=== PATIENT | male | born 1995 | race Caucasian/White ===

== ENCOUNTER 2021-01-24 01:36 | Emergency (ER) | payer OTHER, SELFPAY ==
[2021-01-24 01:36] VITALS: BP 154/95; PULSE 82; RESP 16; TEMP 36.6; O2SAT 99; BMI 24.4
[2021-01-24 01:39] VITALS: O2SAT 99
--- NOTE | 2021-01-24 01:54 | EX.ED.DYSGE1 ---
HPI History of Present Illness Chief Complaint: Shortness of Breath Informant: patient Onset/Context/Timing Onset: Today and Yesterday Context: Gradual Onset Current Severity: Mild Maximum Severity: Moderate Narrative Narrative: Patient presents secondary to shortness of breath. He states he had a cough for some time and assumed it was from his smoking. Over the last day he has had increasing shortness of breath. He states he laid down to take a nap this afternoon before work and felt like he was wheezing. He states that this time it feels like he is trying to breathe through a straw. He denies chest pain. No fever or chills. His cough is productive of yellow sputum. PFSH PFSH no medical history Home Medications NK 01/24/21 [History Last Taken Unknown] Allergy/AdvReac Type Severity Reaction Status Date / Time No Known Allergies Allergy Verified 01/24/21 01:40 Social History Smoking Status: Current every day smoker ROS ROS ED Constitutional Constitutional ED: Denies chills or fever(s) Eyes Eyes: Denies change in vision ENT ENT ED: Denies sore throat Cardiovascular Cardiovascular: Denies chest pain Respiratory/Chest Respiratory/Chest: Reports cough, dyspnea and sputum Gastrointestinal Gastrointestinal: Denies abdominal pain, diarrhea, nausea or vomiting Genitourinary Genitourinary ED: Denies dysuria Musculoskeletal Musculoskeletal: Denies back pain Integumentary Denies rash Neurologic Neurologic: Denies headache(s) or weakness Psychiatric Psychiatric: Denies anxiety or depression Endocrine Endocrinology: Denies polydipsia or polyuria Allergic/Immunologic Allergic/Immunologic ED: Denies urticaria EXAM Physical Exam Const Vital Signs: 01/24/21 01:36 01/24/21 01:39 01/24/21 02:32 Temperature 98 F Temperature Source Oral Pulse Rate 82 74 Respiratory Rate 16 Respiratory Effort Normal Non-Labored Short of Breath Respiratory Depth Normal Respiratory Pattern Normal Blood Pressure 154/95 H Blood Pressure Mean 114 Pulse Ox 99 Oxygen Delivery Method Room Air Room Air Positive well nourished and well developed General Appearance ED: well developed HEENT Reports normocephalic and head/scalp atraumatic Eyes PERRL and EOMs intact bilaterally Neck supple Chest Wall inspection of chest normal and palpation of chest normal Resp normal respiratory effort and clear to auscultation bilaterally Cardio regular rate and regular rhythm GI normal to inspection, nondistended, normoactive bowel sounds Palpation: soft Back/Spine no CVA tenderness Extremity normal to inspection Neuro oriented x3 and no sensory deficits noted Sensorium / Orientation: alert Motor Exam: strength 5/5 throughout Psych mental status grossly normal Skin no rashes or lesions noted MDM MDM MDM Narrative Medical decision making narrative: Patient was given albuterol MDI. Rapid Covid test was obtained and negative. Portable chest x-ray is ordered. Radiography Chest X-Ray - ED: 1 View, Read by ED Physician, Normal, Heart, Lungs and Mediastinum Diagnostic Testing: Radiology Impression Chest X-Ray 01/24/21 02:24 IMPRESSION: Normal x-ray examination of the chest. Electronically Signed: Maximino Cross MD at 2:34 EDT Tel , Service support , Treatment and Re-Evaluation Comments:: On repeat evaluation patient resting comfortably. He does feel improved after using the albuterol. He will use this at home. I believe he has a viral URI that is causing bronchospasm. I do not see cause for antibiotics at this time. Discharge Plan Triage Chief Complaint: Shortness of Breath ED Provider: Lori Avina Dx/Rx/DC Orders Clinical Impression: Viral URI Instructions: ED URI, Viral W/ Wheezing (Adult) Prescriptions: No Action NK RF: 0 Stand Alone Forms: ED Work / School Excuse Primary Care Provider: Care Physician,No Primary Referrals: Shimon Robin MD [STAFF PHYSICIAN] - As Needed Care Physician,No Primary [Primary Care Provider] - Disposition Disposition: Home, self care
--- NOTE | 2021-01-24 02:24 | RAD_ITS ---
STUDY: X-RAY CHEST REASON FOR EXAM: Male, 25 years old. Shortness of breath and chest pain TECHNIQUE: Single AP portable view of the chest. COMPARISON: None. FINDINGS: The lungs are clear and expanded. There is no demonstrated pleural abnormality. Normal size heart. Normal mediastinum and linda. Normal visualized pulmonary arteries. Normal visualized aortic arch and descending thoracic aorta. Normal visualized thoracic spine. Normal visualized ribs, clavicles, and shoulders. There is no demonstrated abnormality of the visualized soft tissue structures of the upper abdomen. RAD/Chest 1 View (Portable) IMPRESSION: Normal x-ray examination of the chest. Electronically Signed: Maximino Cross MD at 2:34 EDT Tel , Service support ,
[2021-01-24 02:32] VITALS: PULSE 74
[2021-01-24 03:02] VITALS: BP 136/82; PULSE 76; RESP 18; O2SAT 96
== END 2021-01-24 03:03 | disposition home or self-care (01) ==
PROVIDERS: Emergency Provider Emergency Medicine
DX: J06.9 Acute upper respiratory infection, unspecified (principal); F17.200 Nicotine dependence, unspecified, uncomplicated
CPT/HCPCS: 71045; 87426; 94640; 99282

== ENCOUNTER 2021-12-25 03:15 | Emergency (ER) | payer OTHER, SELFPAY ==
[2021-12-25 03:16] VITALS: BP 158/86; PULSE 81; RESP 16; TEMP 36.6; O2SAT 98; BMI 24.3
--- NOTE | 2021-12-25 03:42 | EDS_ITS ---
HPI History of Present Illness Chief Complaint: Dental Narrative Narrative: Patient is a 26-year-old male who states that he broke his left upper tooth multiple months ago. He states since that time he has had 2 dental infections. He reports that his last round of antibiotics was approximately 1 month ago. He states that over the last 2 days he had increasing left-sided facial pain and swelling. He denies any fevers or difficulty breathing/swallowing. He states he cannot get into see a dentist for approximately 1 month and was concerned he will need antibiotics for a recurrent infection presents for evaluation [facility] Medical History no medical history Home Medications clindamycin HCl [Cleocin HCl] 300 mg PO 4X/DAY 10 Days #40 cap 12/25/21 [Rx Last Taken Unknown] oxycodone-acetaminophen [Percocet] 1 tab PO Q6H PRN 3 Days #12 tab 12/25/21 [Rx Last Taken Unknown] Allergy/AdvReac Type Severity Reaction Status Date / Time No Known Allergies Allergy Verified 12/25/21 03:18 Social History (Updated 06/04/21 @ 12:15 by Monae Madrid) Smoking Status: Current every day smoker tobacco type: cigarettes alcohol intake: current alcohol intake frequency: a few times a week Alcohol type: beer ROS ROS ED Constitutional Constitutional ED: Denies chills or fever(s) ENT ENT ED: Reports other Details: Positive dental pain ; Denies sore throat Cardiovascular Cardiovascular: Denies chest pain Respiratory/Chest Respiratory/Chest: Denies cough or dyspnea Gastrointestinal Gastrointestinal: Denies abdominal pain, diarrhea, nausea or vomiting Genitourinary Genitourinary ED: Denies dysuria Musculoskeletal Musculoskeletal: Denies myalgias Integumentary Denies rash Neurologic Neurologic: Denies headache(s) Hematologic/Lymphatic Hematologic/Lymphatic: Denies easy bleeding or easy bruising EXAM Physical Exam Const Vital Signs: 12/25/21 03:16 Temperature 97.8 F Temperature Source Temporal Pulse Rate 81 Respiratory Rate 16 Blood Pressure 158/86 H Blood Pressure Mean 110 Pulse Ox 98 Oxygen Delivery Method Room Air Positive well nourished and well developed General Appearance ED: well developed HEENT Reports moist mucous membranes HEENT Narrative: Dental caries are present without obvious dental abscess noted. No tongue or lip swelling no oral lesions no airway edema or compromise Eyes PERRL and EOMs intact bilaterally Neck supple Neck Narrative: No brawny edema in the submental space to suggest Jose A's angina Resp normal respiratory effort and clear to auscultation bilaterally Cardio regular rate and regular rhythm Extremity normal to inspection Neuro oriented x3 and CN's II-XII intact bilaterally Sensorium / Orientation: alert Motor Exam: strength 5/5 throughout Psych mental status grossly normal Skin no rashes or lesions noted MDM MDM MDM Narrative Medical decision making narrative: Patient presented to the ER afebrile with no respiratory distress or airway compromise and no physical exam findings to suggest Jose A's angina. Therefore I felt no need for imaging or laboratory studies. The patient's exam is consistent with dental infection but as he does not have an obvious dental abscess there is no need for incision and drainage. Patient was given a dental block as documented below for pain control and started on antibiotics secondary to the underlying infection but is otherwise safe for discharge Patient was given a left superior alveolar dental block using 1.5 mL of 2% lidocaine with epinephrine and 1.5 mL of 0.5% Marcaine. Patient achieved good anesthesia with the injection and tolerated the procedure well without complication Discharge Plan Triage Chief Complaint: Dental ED Provider: Carlo Velásquez Dx/Rx/DC Orders Clinical Impression: Dental caries, Dental infection Instructions: Dental Abscess, ED Dental Pain Prescriptions: New clindamycin HCl [Cleocin HCl] 300 mg capsule 300 mg PO 4X/DAY 10 Days Qty: 40 RF: 0 oxycodone-acetaminophen [Percocet] 5-325 mg tablet 1 tab PO Q6H PRN (Reason: pain) 3 Days Qty: 12 RF: 0 Primary Care Provider: Care Physician,No Primary Referrals: Care Physician,No Primary [Primary Care Provider] - Dentist,Your [STAFF PHYSICIAN] - 1 Week if not improving Disposition Disposition: Home, Self Care Discharge Date/Time: 12/25/21 04:02
[2021-12-25] MEDS: Clindamycin HCl 150 MG Capsule 300 MG PO (03:45)
== END 2021-12-25 04:02 | disposition home or self-care (01) ==
PROVIDERS: Emergency Provider Emergency Medicine; Visit Provider Emergency Medicine
DX: K02.9 Dental caries, unspecified (principal); K04.7 Periapical abscess without sinus; F17.210 Nicotine dependence, cigarettes, uncomplicated
CPT/HCPCS: 64400; 41800; 99283